=== PATIENT | female | born 1950 | race Two or more races ===

== ENCOUNTER 2018-12-25 12:08 | Day surgery (SDC) | payer MEDICARE, MEDICAID ==
[~2018-12-25] VITALS: Ht 167.6 cm; Wt 99.8 kg
[~2018-12-25 12:08] MED LIST: ASPI-1159 PO; METF-416 PO
[2018-12-25] MEDS ORDERED: TRIAMCINOLONE ACETONIDE 40MG/ML 1ML VIAL ONE (12:12)
[2018-12-25] MEDS ORDERED: BUPIVACAINE HCL/PF 0.5% (5MG/ML) 10ML ONE (12:13)
[2018-12-25] MEDS ORDERED: DEXAMETHASONE 4MG/ML 1ML VIAL ONE (12:13)
[2018-12-25] MEDS ORDERED: GENTAMICIN SULF 40MG/ML 2ML VIAL ONE (12:13)
[2018-12-25] MEDS ORDERED: LIDOCAINE HCL 1% 20ML VIAL (Pyxis) INJ ONE (12:13)
[2018-12-25] MEDS ORDERED: SODIUM CHLORIDE 0.9% 1,000 ML IV SCH (13:15)
[2018-12-25] MEDS ORDERED: HYDR-4001 PO (14:10)
[2018-12-25] MEDS ORDERED: OMEP20CA10 PO (14:10)
[2018-12-25] MEDS ORDERED: NAPR-681 PO (14:10)
[2018-12-25] MEDS ORDERED: LYR25 PO (14:12)
[2018-12-25] MEDS ORDERED: DYZ PO (14:12)
[2018-12-25] MEDS ORDERED: MIDAZOLAM HCL 5 MG/5 ML VIAL ONE (14:18)
[2018-12-25] MEDS ORDERED: PROPOFOL 200MG/20ML VIAL IV ONE (14:23)
[2018-12-25] MEDS ORDERED: CEFAZOLIN SODIUM 1000MG/VIAL ONE (14:24)
[2018-12-25] MEDS ORDERED: LIDOCAINE HCL/PF 1% 10 MG/ML 5ML VIAL ONE (14:24)
[2018-12-25] MEDS ORDERED: SODIUM CHLORIDE 0.9% 1,000 ML IV ONE (15:04)
[2018-12-25] MEDS ORDERED: ONDANSETRON HCL 4MG/2ML INJ IV PRN (15:15)
[2018-12-25] MEDS ORDERED: HYDROMORPHONE HCL/PF 2MG/ML CPJ IV PRN (15:15)
== END 2018-12-25 17:15 | disposition home or self-care (01) ==
LOC: OR 12:08
PROVIDERS: ATTEND Podiatrist Foot & Ankle Surgery
DX: M20.42 Other hammer toe(s) (acquired), left foot (principal); L57.0 Actinic keratosis; I10 Essential (primary) hypertension; E78.5 Hyperlipidemia, unspecified; E11.9 Type 2 diabetes mellitus without complications; N32.81 Overactive bladder; Z79.899 Other long term (current) drug therapy; Z79.84 Long term (current) use of oral hypoglycemic drugs; Z88.2 Allergy status to sulfonamides
CPT/HCPCS: 28124; 28285; 73630; 82962; 88304; 88311; J0690; J1100; J1580; J2250; J2704; J3301; J3490

== ENCOUNTER 2019-06-20 11:14 | Emergency (ER) | payer MEDICARE, MEDICAID ==
[~2019-06-20] VITALS: Ht 170.2 cm; Wt 82.0 kg
[~2019-06-20 11:14] MED LIST changes: -ASPI-1159 PO; +ASPI-1393 PO; +DYZ PO; +HYDR-4001 PO; +LYR25 PO; +NAPR-681 PO; +OMEP20CA5 PO
[2019-06-20] MEDS ORDERED: METHOCARBAMOL 500MG TABLET PO ONE (12:30)
[2019-06-20] MEDS ORDERED: KETOROLAC 60MG/2ML VIAL IM ONE (12:30)
[2019-06-20 14:30] VITALS: BP 138/79
== END 2019-06-20 16:30 | disposition home or self-care (01) ==
LOC: ER 11:14
DX: S16.1XXA Strain of muscle, fascia and tendon at neck level, initial encounter (principal); M25.519 Pain in unspecified shoulder; M25.562 Pain in left knee; E11.9 Type 2 diabetes mellitus without complications; E78.00 Pure hypercholesterolemia, unspecified; I10 Essential (primary) hypertension; Z79.899 Other long term (current) drug therapy; Z79.82 Long term (current) use of aspirin; V43.52XA Car driver injured in collision with other type car in traffic accident, initial encounter; Y93.89 Activity, other specified; Y92.89 Other specified places as the place of occurrence of the external cause; Y99.8 Other external cause status
CPT/HCPCS: 71045; 72125; 82962; 96375; 99284; J1885

== ENCOUNTER → 2019-09-28 | Outpatient (CLI) | payer OTHER, MEDICARE, MEDICAID ==
[~2019-09-28] MED LIST changes: -ASPI-1393 PO; +ASPI-1497 PO; +BARIUM SULFATE 450ML ORAL SUSP ONE; +OMEP20CA14 PO; -OMEP20CA5 PO
== END | disposition home or self-care (01) ==
LOC: CT 10:52
PROVIDERS: ATTEND Internal Medicine Gastroenterology
DX: K57.30 Diverticulosis of large intestine without perforation or abscess without bleeding (principal); D25.9 Leiomyoma of uterus, unspecified; D17.79 Benign lipomatous neoplasm of other sites; Z90.49 Acquired absence of other specified parts of digestive tract
CPT/HCPCS: 74176